=== PATIENT | female | born 1940 | race Hispanic/Latino ===

== ENCOUNTER 2016-05-27 13:35 | Outpatient (CLI) | payer MEDICARE ==
--- NOTE | 2016-05-27 14:31 | Cat Scan Report ---
CT HEAD WITHOUT CONTRAST INDICATION: Acute head trauma. COMPARISON: None similar. FINDINGS: Noncontrast head CT demonstrates normal ventricles and sulci. Moderate to severe bilateral periventricular and white matter hypodense small vessel ischemic disease without definite acute infarct, hemorrhage, mass effect or midline shift. No abnormal extra axial fluid collections. Normal posterior fossa with preserved basilar cisterns. Leftward nasal septal bowing and 5-6 mm leftward nasal septal spur. Hypoplastic right frontal sinus. Clear remainder aerated paranasal sinuses and mastoid air cells. Atherosclerotic internal carotid and vertebral artery calcifications. Bilateral cataract surgeries. Intact calvarium. Normal scalp. Edentulous jaw. CONCLUSION: No acute intracranial CT abnormality with extensive microvascular changes and few other incidental findings, as above. I phoned the above results to . Genia Streeter, 2:15 PM, 05/27/2016. Thank you for the opportunity to participate in this patient's care.
== END 2016-05-27 13:36 | disposition home or self-care (01) ==
LOC: CT 13:35
PROVIDERS: ATTEND Family Medicine
DX: S09.90XA Unspecified injury of head, initial encounter (principal); I73.89 Other specified peripheral vascular diseases; I67.2 Cerebral atherosclerosis; I25.10 Atherosclerotic heart disease of native coronary artery without angina pectoris; Z98.41 Cataract extraction status, right eye; Z98.42 Cataract extraction status, left eye
CPT/HCPCS: 70450